=== PATIENT | male | born 1985 | race American Indian/Alaskan Native ===

== ENCOUNTER 2019-01-02 08:47 | Emergency (ER) | payer SELFPAY ==
[2019-01-02 09:04] VITALS: BP 114/71
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
--- NOTE | 2019-01-02 10:51 | XRay Report ---
LEFT FOOT, 3 VIEWS INDICATION: injury. COMPARISON: None. IMPRESSION: No acute osseous or soft tissue abnormality. No significant DJD. Signer Name: Ge Saenz Jr, MD Signed: 01/02/2019 10:47 AM Workstation Name: [id number]
--- NOTE | 2019-01-02 10:52 | XRay Report ---
RIGHT HAND, 3 VIEWS INDICATION: injury. COMPARISON: None. IMPRESSION: No acute osseous or soft tissue abnormality. No significant DJD. Signer Name: Ge Saenz Jr, MD Signed: 01/02/2019 10:48 AM Workstation Name: [id number]
== END 2019-01-02 11:03 | disposition home or self-care (01) ==
LOC: ED 08:47
DX: S93.602A Unspecified sprain of left foot, initial encounter (principal); S60.221A Contusion of right hand, initial encounter; F17.200 Nicotine dependence, unspecified, uncomplicated; Z88.0 Allergy status to penicillin; X50.9XXA Other and unspecified overexertion or strenuous movements or postures, initial encounter; Y93.89 Activity, other specified; Y92.89 Other specified places as the place of occurrence of the external cause; Y99.8 Other external cause status

== ENCOUNTER 2019-05-28 21:45 | Emergency (ER) | payer MEDICAID ==
[2019-05-28 23:03] VITALS: BP 126/65
== END 2019-05-29 00:20 | disposition left against medical advice (07) ==
LOC: ED 21:45
DX: M54.2 Cervicalgia (principal); Z53.21 Procedure and treatment not carried out due to patient leaving prior to being seen by health care provider